=== PATIENT | male | born 1940 | race Caucasian/White ===

== ENCOUNTER 2021-07-31 16:20 | Emergency (ER) | payer MEDICARE ==
[2021-07-31] MEDS ORDERED: Sodium Phosphate,Monobasic/Sodium Phosphate,Dibasic Enema 133 ML Bottle RECTAL ONE (16:30)
[2021-07-31] MEDS ORDERED: Magnesium Citrate Solution 296 ML Bottle PO ONE (17:49)
== END 2021-07-31 20:35 | disposition home or self-care (01) ==
LOC: LB.ED 16:20
DX: K56.41 Fecal impaction (principal); J44.9 Chronic obstructive pulmonary disease, unspecified
CPT/HCPCS: 93005; 93010; 99282; 99283-25; A9270-GY

== ENCOUNTER 2021-08-28 23:26 | Emergency (ER) | payer MEDICARE ==
[2021-08-28] MEDS ORDERED: Sodium Chloride 0.9% 1,000 ML IV SCH (23:45)
== END 2021-08-29 02:20 ==
LOC: LB.ED 23:26
DX: E87.2 Acidosis (principal); I49.9 Cardiac arrhythmia, unspecified; J44.9 Chronic obstructive pulmonary disease, unspecified; Z20.822 Contact with and (suspected) exposure to COVID-19; Z79.82 Long term (current) use of aspirin; Z79.899 Other long term (current) drug therapy
CPT/HCPCS: 36415; 36600; 80053; 82803; 85025; 93005; 93010; 96360; 96361; 99285; A0425; A0429; J7030; U0002